=== PATIENT | male | born 1945 | race Caucasian/White ===

== ENCOUNTER → 2016-08-25 | Outpatient (CLI) | payer MEDICARE ==
[~2016-08-25] MED LIST: AMLO10TA57 PO; ASPI-611 PO; ATEN-39 PO; BENA1TAB44 PO; METF-47 PO; OMEP20TA24 PO
--- NOTE | 2016-08-25 12:59 | DI ---
Indication: ITS.REASON: M25.569 PAIN IN UNSPECIFIED KNEE KNEE BILAT STANDING 2-3 VIEWS: Comparison: None Technique: Standing AP lateral and patellar views Findings: Patient shows degenerative changes slightly more prominent to the medial compartments but no marked degenerative change nor fractures suggested. Impression: Mild degenerative changes without marked acute abnormality. .
== END ==
LOC: IMA 10:10
PROVIDERS: ATTEND Family Medicine
DX: M89.8X6 Other specified disorders of bone, lower leg (principal); M25.561 Pain in right knee; M25.562 Pain in left knee